=== PATIENT | female | born 1960 | race Caucasian/White ===

== ENCOUNTER 2023-01-23 16:12 | Outpatient (RCR) | payer BC ==
[~2023-01-23 16:12] MED LIST: HYZAAR 100-251 EACH PO; LEVOTHYROXINE75 MCG PO; LOESTRIN1 EAC1 PO; VITAMIN D350000 UNIT PO
== END 2023-02-08 ==
LOC: PT 16:12
PROVIDERS: ATTEND Neurological Surgery
DX: M50.020 Cervical disc disorder with myelopathy, mid-cervical region, unspecified level (principal)